=== PATIENT | female | born 1945 | race Caucasian/White ===

== ENCOUNTER 2018-05-20 10:04 | Outpatient (CLI) | payer MEDICARE, BC ==
--- NOTE | 2018-05-20 12:21 | MRI ---
MRI LUMBAR SPINE NONCONTRAST: DATE: 05/20/18 HISTORY: 72-year-old female with M54.16 lumbar radiculopathy. Low back pain radiating to left lower extremity. COMPARISON: Plain radiograph of 03/05/16. No prior MRIs or CTs of lumbar spine. FINDINGS: The prior plain radiograph demonstrates a transitional level at the lumbosacral junction, which was d esignated as partially lumbarized S1 on that prior report. However, on this MRI, the intervertebral disc space between this transitional level and the sacrum is demonstrated to be fully formed. Therefore, this will instead be designated as L6, and the S1 level will be designated as the next level inferior to it. The level of greatest degenerative disc disease will be designated as L5-6. Using this convention, L1 has bilateral small, accessory ribs. No major pathology of perivertebral spaces. Vertebral body heights are maintained. No spondylolisthes is. T11-12: Only imaged on sagittal sequences. Mild to moderate degenerative disc changes. Probable mild to mode rate central spinal canal stenosis. No severe neural foraminal stenosis. T12-L1: Hemangioma of bone at the left side of T12. Mild to moderate disc space narrowing. Asymmetrical centr al and left paracentral shallow disc protrusion. Minimal dilation of the central canal of the spinal cord (minimal hydromyelia) isolated to this level (does not extend superior or inferior to this level ). No central stenosis and no neural foraminal stenosis. L1-2: Conus medullaris terminates at upper to mid L2. Normal disc. No central or neural foraminal stenosis. L2-3: Normal. L3-4: Normal. L4-5: Severe bilateral degenerative facet disease, including moderate to severe facet hypertrophy/osteophyt osis, moderate ligamentum flavum thickening, and bilateral facet joint effusions. This causes a minim al Grade I anterolisthesis of L4 on L5. Diffuse disc bulge. Mild to moderate right neural foraminal s tenosis. Moderate left neural foraminal stenosis. Somewhat severe central spinal canal stenosis. CSF signal not complete effaced. Disc space maintained. L5-6: Severe disc space narrowing. Extensive end plate irregularities. Modic Type I end plate changes. Mode rate to severe bilateral degenerative facet changes. Diffuse disc bulge. Moderate to severe right anjana ral foraminal stenosis. Severe left neural foraminal stenosis. Moderate to severe central spinal jaimee l stenosis. Lateral recess stenosis bilaterally. L6-S1: Normal disc space with normal height and signal. No high grade central spinal canal stenosis as seen on the sagittal images (axial images were not obtained through this level). Bilateral mild to moderat e neural foraminal stenosis. IMPRESSION: 1. Transitional level at lumbosacral junction: Somewhat arbitrarily designated as L6 with bilateral L6-S1 assimilation joints. 2. Moderate to severe degenerative disc disease at L5-6, and mild to moderate degenerative disc dise ase at L4-5. 3. Severe central spinal canal stenosis at L4-5 and moderate to severe central spinal canal stenosis at L5-6. 4. High grade neural foraminal stenosis bilaterally at L5-6 (left worse than right) and on the left at L4-5. MARISSA Burr POS: [facility]
== END 2018-05-20 10:05 | disposition home or self-care (01) ==
LOC: TBSIIMAG 10:04
PROVIDERS: ATTEND Family Medicine
DX: M54.16 Radiculopathy, lumbar region (principal); M48.061 Spinal stenosis, lumbar region without neurogenic claudication; M99.83 Other biomechanical lesions of lumbar region
CPT/HCPCS: 72148

== ENCOUNTER 2021-03-27 11:20 | Outpatient (CLI) | payer MEDICARE, BC | END 2021-03-27 11:21 | disposition home or self-care (01) | LOC: BICMAMMO 11:20 | PROVIDERS: ATTEND Obstetrics & Gynecology | DX: Z12.31 Encounter for screening mammogram for malignant neoplasm of breast (principal) | CPT/HCPCS: 77063; 77067 ==

== ENCOUNTER 2022-12-05 10:28 | Outpatient (CLI) | payer MEDICARE, BC | END 2022-12-05 10:29 | disposition home or self-care (01) | LOC: BICMAMMO 10:28 | PROVIDERS: ATTEND Obstetrics & Gynecology | DX: Z12.31 Encounter for screening mammogram for malignant neoplasm of breast (principal) | CPT/HCPCS: 77063; 77067 ==

== ENCOUNTER 2023-12-11 13:14 | Outpatient (CLI) | payer MEDICARE, BC | END 2023-12-11 13:15 | disposition home or self-care (01) | LOC: BICMAMMO 13:14 | PROVIDERS: ATTEND Obstetrics & Gynecology | DX: Z12.31 Encounter for screening mammogram for malignant neoplasm of breast (principal) | CPT/HCPCS: 77063; 77067 ==